=== PATIENT | female | born 1970 | race Caucasian/White ===

== ENCOUNTER 2020-09-21 18:43 | Emergency (ER) | payer OTHER, SELFPAY ==
--- OUTSIDE RECORDS SUMMARY | 2020-09-21 18:45 | XMS REPORT | Continuity of Care Document ---
:1970 Author Organization [facility] t Address [address] [place] [address] Care Team Providers Name Role Phone Lab, Fam Pob I Attending Clinician Unavailable Charla MORGAN Attending Clinician Problems This patient has no known problems. Allergies, Adverse Reactions, Alerts This patient has no known allergies or adverse reactions. Medications This patient has no known medications. Procedures This patient has no known procedures. Encounters Start End Encounter Admission Attending Care Care Encounter Source Date/Time Date/Time Type Type Clinicians Facility Department ID 2020-04-30 2020-04-30 Laboratory Lab, [facility] [id number] 07:50:40 08:10:40 Only Fam Pob I Health [id number] [place] [id number] Professio [phone] nal 044 Office [address] One 2019-05-29 2019-05-29 Office Charla KSMARGARITA [id number] 07:57:11 08:26:32 Visit Dominga Bucio [id number] [place] [id number] Professio [phone] nal 205 Building Results This patient has no known results.
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
== END 2020-09-21 20:31 | disposition home or self-care (01) ==
LOC: ER 18:43
DX: M54.2 Cervicalgia (principal); V49.49XA Driver injured in collision with other motor vehicles in traffic accident, initial encounter; Z88.0 Allergy status to penicillin
CPT/HCPCS: 70450; 72125; 99283